=== PATIENT | female | born 1940 | race Caucasian/White ===

== ENCOUNTER → 2017-01-08 | Outpatient (CLI) | payer MEDICARE, BC ==
[~2017-01-08] MED LIST: AMARYL1 MG PO; AMBIEN PO; AMOXICILLIN PO; ASPIRIN PO; BUMEX1 MG PO; BUMEX2 MG PO; CIPRO PO; CORGARD PO; DIOVAN HCT 160/1 TAB PO; GLUCOPHAGE XR500 MG PO; GLUCOPHAGE500 M1 PO; HYDRALAZINE HCL25 MG PO; LACTULOSE10 G/15 M1 PO; LANTUS100 U/ML SUBQ; LEVAQUIN PO; LOPRESSOR PO; LORTAB 5/500 TA1 TA1 PO; MACRODANTIN PO; METFORMIN HCL500 M1 PO; METOPROLOL TAR25 MG PO; MOTRIN600 MG PO; NEXIUM PO; NITROGYLCERIN SUBLINGUAL; NOVOLOG100 U/ML SUBQ; OMNICEF300 MG PO; PROTONIX PO; RESTORIL15 MG PO; TEMAZEPAM PO; TRAMADOL HCL50 M1 PO; VICODIN 5/1 TAB 5/50 PO; XIFAXAN550 MG PO; ZINC50 M1 PO; ZOFRAN PO
--- NOTE | ~2017-01-08 | BD1 ---
[facility] A Service of [facility] RADIOLOGY TEXT RESULTS PATIENT: ADELAIDA SMITH LOCATION: [facility] : 40 UNIT #: [id number] AGE: [address]: Kurt Winters MD SEX: F ORDER DR: [id number] [facility] [address] [place], [place] [address] [id number] O MR#: [id number] Acc #: [id number] NAME: ADELAIDA SIMTH : 1940 SEX: F STUDY DATE/TIME: 01/08/2017 14:02 UNIT: [facility] ROOM: STUDY DESCRIPTION: BD Dexa Bone Dens 1+ Site Attending Physician: Kurt Winters M.D. Ordering Physician: Kurt Winters M.D. Primary Care Physician: Kurt Winters M.D. MEDICAL IMAGING REPORT This report is preliminary unless electronic signature is present EXAM DXA scan. HISTORY Postmenopausal screening for osteoporosis. FINDINGS Bone density was assessed utilizing Hologic bone densitometer. Total bone density in the lumbar spine was calculated at 0.790 g/cm2 with T-score -2.3. Bone density in the proximal left femur and femoral neck region measures 0.518 g/cm2 with T-score -3. IMPRESSION Total bone density within the left femoral neck is greater than 2.5 standard deviations below the mean and is compatible with World Health Organization criteria for osteoporosis. Dictated by... Hay Burton M.D. THIS IS AN ELECTRONICALLY VERIFIED REPORT Hay Burton M.D. at 01/10/2017 10:35 PM Evi TD: 01/08/2017 16:50 JOB #: [id number] MEDICAL IMAGING REPORT Page 1 of 1 COPY
== END | disposition home or self-care (01) ==
LOC: CWCC 13:30
DX: M81.0 Age-related osteoporosis without current pathological fracture (principal)
CPT/HCPCS: 77080

== ENCOUNTER → 2017-04-10 | Outpatient (CLI) | payer SELFPAY | END | disposition home or self-care (01) | LOC: CNIV 12:49 | DX: Z13.6 Encounter for screening for cardiovascular disorders (principal) ==